=== PATIENT | female | born 1945 | race Caucasian/White ===

== ENCOUNTER 2016-12-11 13:43 | Emergency (ER) | payer OTHER ==
[~2016-12-11] VITALS: Ht 152.4 cm; Wt 66.6 kg
[~2016-12-11 13:43] MED LIST: ASPEC81 PO; DYZ PO; ESTR0.3T PO; ESZO2TAB3 PO; EZET10TA63 PO; FIBER CHOICE PO; LANS30CA12 PO; METO50TA16 PO; OXYC-106 PO; OXYC80TA16 PO; OXYSR40 PO; TELM80TA4 PO
[2016-12-11 13:44] VITALS: TEMP 36.4; Ht 152.4 cm; Wt 66.6 kg
[2016-12-11] MEDS ORDERED: XYLOCAINE 1%/SOD BICARB 20 ML VIAL INFIL ONE (13:56)
[2016-12-11] MEDS ORDERED: APIX1TAB PO (13:56)
[2016-12-11] MEDS ORDERED: [UNRECOGNIZED DRUG - CODE] PO (13:56)
[2016-12-11] MEDS ORDERED: PRLSR20 PO (13:56)
[2016-12-11] MEDS ORDERED: AMIO200T4 PO (13:56)
[2016-12-11] MEDS ORDERED: VALS40TA2 PO (13:56)
--- NOTE | 2016-12-11 14:22 | EMERGENCY ROOM VISIT NOTE ---
ED Visit Note First contact with patient: 14:12 CHIEF COMPLAINT: Finger laceration HISTORY OF PRESENT ILLNESS: This 71-year-old female patient presents to the emergency department ambulatory after cutting the left index finger when she accidentally closed it in a car door yesterday. The bleeding has not stopped. Denies weakness or numbness of the finger. The patient has full range of motion of the fingers. The patient denies any pain. The patient denies any other injuries. The patient's tetanus shot is not up to date. REVIEW OF SYSTEMS: A 6 system review of systems was completed with positives and pertinent negatives listed in the HPI. ALLERGIES: Zithromax, benzonatate, cephalosporins, etodalac MEDICATIONS: See nursing note PMH: Atrial fibrillation, GERD SOCIAL HISTORY: The patient lives locally. PHYSICAL EXAM: Vital Signs: Reviewed Nurse's notes, vital signs stable. GENERAL : This is a 71-year-old female, in no acute distress, well developed, well nourished. SKIN: There is a 2 cm long laceration on the palmar aspect of the distal left second finger. The edges gape apart with traction. There is no foreign material in the wound and it looks clean. There is moderate bleeding. No deep structures such as tendons, bones, or nerves are seen in the base of the wound. Extension and flexion of the finger is full and strong. Full range of motion of the wrist and other fingers. Capillary refill less than 2 seconds. Normal sensation to light and sharp touch. EMERGENCY DEPARTMENT COURSE: I examined the patient. Using sterile technique the wound was cleaned with Betadine. 3 ml of 1% buffered lidocaine was used to infiltrate the wound to anesthetize the patient. The area was sterilely draped. Once the patient was numb, the wound was copiously irrigated under pressure with sterile saline. The wound was explored and there were no deep structures such as tendons, bone, or ligaments present. The laceration was repaired using simple interrupted 5-0 prolene sutures. The patient tolerated the procedure well. The bleeding stopped. The area was cleaned with sterile saline and dressed with bacitracin ointment and bandage. The patient was given a tetanus booster. The patient was discharged home in good condition. The patient does have a tuft fracture. It does not appear to be a truly open fracture. The laceration is somewhat superficial and the fracture seems to be deeper. The patient was placed in a metal splint. She'll be placed on Augmentin (she has tolerated amoxicillin in the past) and she should follow-up with orthopedics for further evaluation and management. LEFT FINGER(S) MIN 2 VIEWS ROUTINE HISTORY: 71 years-old Female acute left index finger crush injury COMPARISON: None available TECHNIQUE: 3 views of the left second digit. FINDINGS: There is an acute comminuted nondisplaced and non-angulated fracture involving the second distal phalangeal tuft with moderate associated soft tissue swelling. No radiopaque foreign body or additional fracture or dislocation identified. IMPRESSION: Acute nondisplaced comminuted fracture of the second distal phalange tuft. Current/Historical Medications Scheduled Amiodarone Hcl (Cordarone), 200 MG PO DAILY Amoxicillin & Pot Clavulanate (Augmentin 875-125 mg), 1 TAB PO BID Apixaban (Eliquis), Unknown Dose PO BID Morphine Sulfate (Morphine Sulfate ER), 200 MG PO Q12H Omeprazole (Prilosec), 20 MG PO DAILY Oxycodone/Acetaminophen 10MG/325MG (Percocet 10MG/325MG), 1 TAB PO Q4HR PRN Valsartan (Diovan), Unknown Dose PO DAILY [Fiber Choice], 2 GR PO DAILY Allergies Coded Allergies: Azithromycin (Verified Allergy, Severe, SWELLING,HIVES, 2/5/10) Cephalosporins (Verified Allergy, Severe, SWELLING,HIVES, 2/5/10) Etodolac (Verified Allergy, Severe, SWELLING,HIVES, 2/5/10) Benzonatate (Verified Allergy, Unknown, SWELLING/HIVES, /5/10) Vital Signs Date Time Temp Pulse Resp B/P (MAP) Pulse Ox O2 Delivery O2 Flow Rate FiO2 12/11/16 15:27 62 146/72 97 Room Air 12/11/16 13:44 36.4 78 20 157/71 97 Room Air Medications Administered Medications (Trade) Dose Ordered Sig/Brenda Route Start Time Stop Time Status Last Admin Dose Admin Diphtheria/ Pertussis/Tetanus Vacc (Adacel Inj) 0.5 ml ONCE ONCE IM. 12/11/16 14:30 12/11/16 14:31 DC 12/11/16 14:27 0.5 ML Departure Information Impression Primary Impression: Laceration Additional Impression: Finger fracture Dispostion Home / Self-Care Condition GOOD Prescriptions Amoxicillin & Pot Clavulanate (Augmentin 875-125 mg) 1 Tab Tab 1 TAB PO BID for 10 Days, #20 TAB Prov: Clarisa Briones PA-C 12/11/16 Referrals No Doctor, Assigned (PCP) Tam Carcamo MD Patient Instructions ED Fx Finger Closed, ED Laceration All, My [facility] Additional Instructions Keep wound clean and dry. Do not allow any crusting or dried blood to accumulate on sutures. If this occurs, use a 1:1 solution of hydrogen peroxide/ water on a Q-tip to clean the wound. Use an antibiotic ointment for 3-4 days, then let wound dry. Suture removal in 10-12 days. Return sooner for any signs of infection (increasing redness, swelling, drainage). Ice and elevate for swelling and pain. Tylenol according to package instructions for pain. Keep covered when in sun until sutures removed then SPF 50 or higher for one year. Vitamin E oil if desired two weeks after suture removal for reduction of scar. This wound is at increased risk for infection given the delayed primary closure. Augmentin every 12 hours for 10 days to help prevent infection. Wear the splint until seen by orthopedics. Contact them first thing Thursday morning to schedule a follow-up appointment. Return with any redness, swelling, warmth, drainage of pus, fever Problem Qualifiers Additional Impression: Finger fracture Encounter type: initial encounter Finger: index finger Fracture type: closed Phalanx: distal Fracture alignment: nondisplaced Laterality: left Qualified Codes: S62.661A - Nondisplaced fracture of distal phalanx of left index finger, initial encounter for closed fracture
[2016-12-11] MEDS ORDERED: DIPHTHERIA/TETANUS/PERTUSSIS 0.5 ML SYR/VIAL IM. ONE (14:30)
--- NOTE | 2016-12-11 14:49 | DIAGNOSTIC IMAGING REPORT ---
LEFT FINGER(S) MIN 2 VIEWS ROUTINE HISTORY: 71 years-old Female acute left index finger crush injury COMPARISON: None available TECHNIQUE: 3 views of the left second digit. FINDINGS: There is an acute comminuted nondisplaced and non-angulated fracture involving the second distal phalangeal tuft with moderate associated soft tissue swelling. No radiopaque foreign body or additional fracture or dislocation identified. IMPRESSION: Acute nondisplaced comminuted fracture of the second distal phalange tuft. The above report was generated using voice recognition software. It may contain grammatical, syntax or spelling errors. Electronically signed by: Yonny Burk M.D. 12/11/2016 2:47 PM Dictated Date/Time: 12/11/2016 2:44 PM
[2016-12-11] MEDS ORDERED: AMOX875T PO (15:25)
[2016-12-11 15:27] VITALS: BP 146/72; PULSE 62; O2SAT 97
== END 2016-12-11 15:38 | disposition home or self-care (01) ==
LOC: C.EDB 13:45 → C.EDD 15:38
DX: S61.211A Laceration without foreign body of left index finger without damage to nail, initial encounter (principal); S62.661A Nondisplaced fracture of distal phalanx of left index finger, initial encounter for closed fracture; V43.42XA Person boarding or alighting a car injured in collision with other type car, initial encounter; Z23 Encounter for immunization; I48.91 Unspecified atrial fibrillation; K21.9 Gastro-esophageal reflux disease without esophagitis; Z79.899 Other long term (current) drug therapy; Z88.8 Allergy status to other drugs, medicaments and biological substances